=== PATIENT | female | born 1975 | race African-American/Black ===

== ENCOUNTER → 2018-09-02 | Outpatient (CLI) | payer OTHER ==
[~2018-09-02] MED LIST: CETI10TA22 PO; MONT10TA49 PO; NORG1TAB6 PO; SPIR25TA5 PO
--- NOTE | 2018-09-02 23:55 | PAIN ---
DATE OF SERVICE: 09/02/2018 INITIAL CONSULTATION FOR PAIN CLINIC CHIEF COMPLAINT: Neck and the left greater than right upper extremity pain. HISTORY OF PRESENT ILLNESS: This is a 42-year-old female with history of pain in neck base of the shoulders, worse on the left than the right radiating for about 4 years or so on and off, but much worse over the past few months. The patient reports it is increasing with activity, using her upper extremities, driving a car with left arm steering, any repetitive motions of her raising above her head with her left hand reaching items, even putting on clothing with her left arm, going through the sleeve of her jacket per se. The patient reports it wakes her from sleep about once or twice at night. Also has some low back pain, which can keep her awake as well with some radiation to posterior gluteus and thighs, but mainly the chief complaint is base of the neck, left greater than right upper extremity. The patient reports it does not affect her bowel or bladder control, does not affect her ability to walk. Again, waking her from sleep, she has tried Flexeril which has not significantly helped, but does make her sleepy. She is using it as a sleep aid more than anything at this point. She has had previous trigger point injections, dry needling, physical therapy currently, chiropractic currently, and exercises daily. The patient reports nothing has really given her much long-term relief thus far. The patient reports no loss of motor function, but significant fatigability to left and she has been dropping some items occasionally when she has had a longer day at work or has been using her left arm repetitively. The patient rates her disability rate from 0-10, 10 being the worst, a 4 with family home responsibilities and recreation, 6 with social activity, 3 with occupation and sexual behavior, 1 with self-care and life support activities. The patient did have MRI scan both of cervical and lumbar spine showing cervical spine with left posterior disk bulge at C4-C5 abutting the left ventral cord with minimal disk degeneration at C4-C5 as well as left posterior disk bulge, minimal spinal canal narrowing, lumbar spine shows L5-S1 disk degeneration which is minimal as well with left posterior disk bulging minimal also without significant stenosis. The patient reports no loss of motor function, but significant fatigability to left arm compared to the right and tingling and numbness in all the fingers on the left hand, although the patient reports she has some carpal tunnel, which confuses this as well. PAST MEDICAL HISTORY: Significant for borderline diabetes not treated with medications or diet at this time and history of arthritis. PREVIOUS SURGERY: Include bilateral knee surgery, arthroscopic 2007 and 2012; also tubal ligation in 2008 and again in 2010. CURRENT MEDICATIONS: Sprintec oral contraceptive, montelukast, spironolactone, and Zyrtec. ALLERGIES: THE PATIENT IS ALLERGIC TO PERCOCET, HYDROCODONE, WHICH CAUSES HER TO ITCH. SOCIAL HISTORY: The patient does not smoke cigarettes, occasional cigar. Drinks alcohol only socially, maybe once or twice a month at the most. Does not use any illegal, illicit, or recreational drugs. He is single, has one child, living at home and lives in [place] locally. 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 Mostly in a sit down desk type position by her report. REVIEW OF SYSTEMS: Positive for those items mentioned in history of present illness. All systems reviewed and otherwise negative. It is complete, full and well documented on the patient's chart. PHYSICAL EXAMINATION: VITAL SIGNS: His blood pressure 137/80, respirations 18, pulse 81, temperature 98.2 degrees Fahrenheit, height is 5 feet 1 inch, weight is 171 pounds. GENERAL: The patient is awake, alert, oriented, appropriate, very pleasant demeanor. HEENT: Head normocephalic, atraumatic. Extraocular movements are intact and symmetrical. Oral cavity: Mucous membranes moist and pink. Dentition is intact. NECK: Shows anterior throat supple without palpable lymphadenopathy noted. Swallow reflex symmetrical. Posterior cervical musculature shows symmetrical on inspection in both right and left without atrophy or hypertrophy, with palpation shows some mild tenderness in the inferior aspect of the cervical paraspinous musculature more on the left than the right, but again symmetrical, no evidence of atrophy, hypertrophy, no trigger points, no radiation of pain. There is some moderate tenderness in the superior medial and lateral trapezius on the left side compared to the right, which is supple. The patient shows no radiation with this. The patient has good rotational motion of cervical spine, both laterally greater than 45 degrees closer to 90 degrees as well as full rearward extension, full forward flexion without significant pain or discomfort noted. CHEST: Shows normal on inspection. Breath sounds clear to auscultation bilaterally. HEART: Shows S1, S2 clear. No murmurs auscultated. ABDOMEN: Soft, obese, nontender, nondistended. No palpable organomegaly is noted. No rebound or guarding demonstrated. BACK: The patient's back shows spine grossly in the midline. Normal-appearing thoracic kyphosis, lumbar lordotic curvature. Lumbar paraspinous muscle shows symmetrical on inspection, with palpation shows some very mild tenderness more on the left than the right in the inferior aspect of the lumbar paraspinous muscles, but again without asymmetry, without trigger points. No atrophy, hypertrophy, no radiation of pain. The patient has good rotational motion of the lumbar spine, both laterally greater than 10 degrees right and left as well as extension greater than 10 degrees, forward flexion 45 degrees without pain reported. No tenderness over the sacrum and sacroiliac regions over the spinous processes. EXTREMITIES: The patient's extremities show upper extremity deep tendon reflexes 2+ in the biceps and triceps tendons. Motor exam is strong with casework specialist strength rated 5/5 as is bicep and tricep flexion bilaterally. Lower extremities show deep tendon reflexes 1+ patellar and tendo-calcaneus tendons. Motor exam is strong with 5/5 dorsiflexion, extension, quadriceps and hamstring flexion and symmetrical. Peripheral pulses are 1+ posterior tibial and dorsalis pedis pulses and radial distribution is 2+ bilaterally and equal. No peripheral edema is noted in the extremities. SKIN: The patient's skin was warm and dry, good turgor. No edema. No sores, rashes, or bruising. IMPRESSION: 1. This is a 42-year-old female with approximately 4-year history of increasing pain in base of the neck, left upper extremity greater than right in a radicular fashion. 2. Low back pain with radicular fashion in the bilateral lower extremities, again left greater than right. MRI scan both cervical and lumbar spines as noted. 3. Borderline diabetes. 4. Arthritis. PLAN: Options were discussed with the patient including conservative medical management, physical therapy, interventional techniques and she is doing physical therapies and also exercises daily. We discussed interventional techniques. We discussed a cervical epidural steroid injection using description as well as anatomical models to describe the procedure. The patient would like to look into this. We will try Medrol Dosepak in the meantime as she need preauthorization with her insurance provider. The patient was given instruction as well as side effects to be aware of with the medication and will follow up in approximately one week to plan on cervical epidural steroid injection at that time. ASIM LOPEZ MD DR: SIA/marina JOB#: [id number] / [id number]
== END ==
LOC: PNCL 13:33
PROVIDERS: ATTEND Anesthesiology
DX: M50.321 Other cervical disc degeneration at C4-C5 level (principal); M48.02 Spinal stenosis, cervical region; M51.37 Other intervertebral disc degeneration, lumbosacral region; R73.09 Other abnormal glucose; M19.90 Unspecified osteoarthritis, unspecified site; Z88.8 Allergy status to other drugs, medicaments and biological substances
CPT/HCPCS: G0463

== ENCOUNTER → 2018-09-30 | Outpatient (CLI) | payer OTHER ==
[~2018-09-30] MED LIST changes: +IOHEXOL 180 MG/ML 10 ML VIAL. ONE; -MONT10TA49 PO; +MONT10TA9 PO; +methylPREDNISolone ACETATE 40 MG/ML VIAL. ONE; +methylPREDNISolone ACETATE 80 MG/ML VIAL. ONE
--- NOTE | 2018-09-30 22:35 | PAIN ---
DATE OF SERVICE: 09/30/2018 PROGRESS NOTE FOR PAIN CLINIC DIAGNOSES: 1. Cervical radiculopathy with cervical degenerative disk disease. 2. Lumbar radiculopathy with lumbar degenerative disk disease. HISTORY OF PRESENT ILLNESS: This is a 42-year-old female who returns for followup status post initial evaluation and preauthorization for cervical epidural steroid injection. The patient has obtained and would like to proceed today. The patient reports still significant pain in the base of the neck and left upper extremity as it was previously in the shoulder and arm radiating to the hand with some numbness and tingling as well as some on the right side. The patient reports it is a 6 on a scale 10 at its worst, 3 on average, and a 2 at least. Reports aching, dull, tight, shooting, becoming more constant. We did try Medrol Dosepak, which she reports helped for a few days while she was taking it, but after about 3 days following the completion of the Medrol Dosepak, the pain returned except into its baseline. The patient reports it is better with lying down or resting. Her arm does not awaken her from sleep at night. No new motor or sensory deficits or other complaints. PHYSICAL EXAMINATION: VITAL SIGNS: The patient's blood pressure is 124/98, pulse is 78, respirations are 18, temperature is 98.3 degrees Fahrenheit, height is 5 feet 2 inches, weight 167 pounds. GENERAL: She is awake, alert, oriented, appropriate, very pleasant demeanor. HEENT: Head shows normocephalic, atraumatic. Extraocular movements are intact and symmetrical. Oral cavity: Mucous membranes moist and pink. Dentition is intact. NECK: Shows anterior throat supple without palpable lymphadenopathy noted. CHEST: Shows normal on inspection. Breath sounds clear to auscultation bilaterally. HEART: Shows S1, S2 clear. No murmurs auscultated. ABDOMEN: Soft, nontender, nondistended. No palpable organomegaly is noted. No rebound or guarding demonstrated. BACK: The patient's neck shows normal cervical lordotic curvature, thoracic kyphotic curvature and lumbar lordotic curvature. Cervical paraspinous muscle shows symmetrical on inspection, on palpation shows some moderate tenderness in the inferior aspect of the cervical paraspinous muscles, more on the right than the left, but without asymmetry or trigger points, no difficulty with rotation of the cervical spine, both laterally as well as extension and flexion without significant pain reported. EXTREMITIES: The patient's upper extremities show deep tendon reflexes 2+ in the biceps and triceps tendons. 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 Peripheral pulses are 2+ radial distribution. No peripheral edema is noted bilaterally. Options were discussed with the patient. The patient's old chart was reviewed as her current medication regimen updated. Current review of systems is updated today as well and we will proceed with a cervical epidural steroid injection today with fluoroscopic guidance. Risks were again discussed including, but not limited to bleeding, infection, possibility of epidural hematoma, subsequent neurologic compromise, dural puncture, headaches, spinal cord and/or nerve damage, side effects of steroid medication and poor results regarding pain control. The patient understands and wished to proceed. The patient to return to clinic in approximately 2 weeks for follow up, was counseled on return appointment, activity level and side effects to be aware. DIAGNOSES: Cervical radiculopathy with cervical degenerative disk disease. PROCEDURE: Cervical epidural steroid injection in translaminar approach at C6-C7 level using C-arm fluoroscopic guidance under sterile prep and drape using local anesthetic. MEDICATION INJECTED: A total of 120 mg Depo-Medrol plus 5 mL of preservative-free normal saline and 2 mL of Isovue for contrast. CONDITION AT DISCHARGE: Stable. The patient tolerated procedure well, had no complications. ASIM LOPEZ MD DR: SIA/marina JOB#: [id number] / [id number]
== END | disposition home or self-care (01) ==
LOC: PNCL 10:23
PROVIDERS: ATTEND Anesthesiology
DX: M50.123 Cervical disc disorder at C6-C7 level with radiculopathy (principal); M51.16 Intervertebral disc disorders with radiculopathy, lumbar region; Z98.890 Other specified postprocedural states; Z88.8 Allergy status to other drugs, medicaments and biological substances
CPT/HCPCS: 62321; J1030; J1040; Q9965

== ENCOUNTER → 2018-12-04 | Outpatient (CLI) | payer OTHER ==
--- NOTE | 2018-12-04 14:15 | PAIN ---
DATE OF SERVICE: 12/04/2018 PROGRESS NOTE FOR PAIN CLINIC DIAGNOSES: 1. Cervical radiculopathy with cervical degenerative disk disease. 2. Lumbar radiculopathy with lumbar degenerative disk disease. HISTORY OF PRESENT ILLNESS: The patient is a 43-year-old female who returns for followup status post cervical epidural steroid injection x 1 that was on 09/30/2018. The patient did very well, reports about 90% improvement until the last week or so. The patient reports the pain is returning at the base of the neck, left shoulder, left upper extremity, radiating with some tightness intermittently in the base of the shoulder and neck. The patient reports it is aching pain, is constant, becoming more radiating to the left arm and hand with some numbness and tingling, but no loss of motor function. The patient rates her pain as a 6 on a scale 10 over the last week at its worse, 4 on average, 3 at its least and is a 3 today. The patient reports she was increasing her activity with work activities, household activities, mobility, feels like her low back was feeling better as well and she feels that it "loosened." The patient reports no new motor or sensory deficits, no new bowel or bladder incontinence or other complaints. PHYSICAL EXAMINATION: VITAL SIGNS: The patient's blood pressure 130/64, pulse 54, respirations 16, temperature 98.3 degrees Fahrenheit, height is 5 feet 1 inch, weight is 172 pounds. GENERAL: The patient is awake, alert, oriented, appropriate, very pleasant demeanor. HEENT: Head is normocephalic, atraumatic. Extraocular muscles are intact and symmetrical. Oral cavity: Mucous membranes moist and pink. Dentition intact. NECK: Shows anterior throat supple without palpable lymphadenopathy noted. Swallow reflex symmetrical. CHEST: Shows normal on inspection. Breath sounds clear to auscultation bilaterally. HEART: Shows S1, S2 clear. No murmurs auscultated. ABDOMEN: Soft, nontender, nondistended. No palpable organomegaly is noted. No rebound or guarding demonstrated. BACK: Shows spine grossly in the midline, normal-appearing cervical lordotic curvature, thoracic kyphotic curvature and lumbar lordotic curvature. Cervical paraspinous muscle shows symmetrical on inspection. With palpation shows some moderate tenderness diffusely in the base of the cervical paraspinous muscles bilaterally, slightly more tender on the left trapezius in the right, but without asymmetry, without atrophy, hypertrophy or trigger points. The patient has good rotational motion of cervical spine, both laterally as well as extension and flexion without difficulty. EXTREMITIES: Upper extremities show deep tendon reflexes 2+ in the biceps, triceps tendons. Motor exam is strong with 5/5 clerk carrier strength, bicep and tricep flexion. Peripheral pulses are 2+ radial distribution. No peripheral edema is noted bilaterally. PLAN: Options were discussed with the patient. The patient's old chart was reviewed as her current medication regimen updated. Current review of systems updated today as well. We will proceed with a second in a series of cervical epidural steroid injection today with fluoroscopic guidance. Risks were again discussed including, but not limited to bleeding, infection, possibility of epidural hematoma, subsequent neurological compromise, dural puncture, headaches, spinal cord and/or nerve damage, side effects of steroid medication and poor results regarding pain control. The patient understands and wished to proceed. The patient will return to clinic in approximately 2 weeks for followup, was counseled on return appointment, activity level and side effects to be aware of. DIAGNOSIS: Cervical radiculopathy with cervical degenerative disk disease. PROCEDURE: Cervical epidural steroid injection, translaminar approach at C6-C7 level using C-arm fluoroscopic guidance under sterile prep and drape using local anesthetic. MEDICATION INJECTED: A total of 120 mg of Depo-Medrol plus 5 mL of preservative-free normal saline and 2 mL of Isovue for contrast. CONDITION AT DISCHARGE: Stable. The patient tolerated the procedure well, had no complications. ASIM LOPEZ MD DR: SIA/marina JOB#: [id number] / [id number]
== END ==
LOC: PNCL 09:08
PROVIDERS: ATTEND Anesthesiology
DX: M50.123 Cervical disc disorder at C6-C7 level with radiculopathy (principal); M51.16 Intervertebral disc disorders with radiculopathy, lumbar region
CPT/HCPCS: 62321; J1030; J1040; Q9965

== ENCOUNTER → 2019-01-01 | Outpatient (CLI) | payer OTHER ==
[~2019-01-01] MED LIST changes: +MONT10TA49 PO; -MONT10TA9 PO
--- NOTE | 2019-01-01 10:01 | PAIN ---
DATE OF SERVICE: 01/01/2019 DIAGNOSIS: Cervical radiculopathy with cervical degenerative disk disease. HISTORY OF PRESENT ILLNESS: The patient is a 43-year-old female who returns for followup status post cervical epidural steroid injections x 2. The patient reports about 90% improvement for the first 2 months and the pain is returning now. We had her preauthorized for a third injection today and she would like to proceed with that. Pain in the base of the neck and shoulders, worse on the left than the right with spasms in the upper back and mid back as well as some low back pain. The patient reports she has been under a lot of stress lately with her job and with home and has increased pain and tension, mostly in the left arm, radiates to the left posterior deltoid and posterior triceps. The patient reports her pain is 4 on a scale of 10 at its worst, 4 on average, 3 at its least over the past week and is 3 today. The patient reports it is aching and tight, becoming more constant and noticeable with activity. The patient reports it awakens her from sleep at night at least once or twice, she continues to reposition and get back to sleep. Initially, she was doing better with distance walking, doing work activities, increased activity with upper extremity, but now the pain is returning to a fairly significant level. The patient reports no new motor or sensory deficits, no new bowel or bladder incontinence or other complaints. PHYSICAL EXAMINATION: VITAL SIGNS: The patient's blood pressure is 119/75, pulse 81, respirations 16, temperature 99.4 degrees Fahrenheit, height is 5 feet 1 inch, weight is 179 pounds. GENERAL: The patient is awake, alert, oriented, appropriate, very pleasant demeanor. HEENT: Head shows normocephalic, atraumatic. Extraocular movements are intact and symmetrical. Oral cavity: Mucous membranes moist and pink. Dentition is intact. NECK: Shows anterior throat supple without palpable lymphadenopathy noted. Swallow reflex symmetrical. CHEST: Shows normal with inspection. Breath sounds clear to auscultation bilaterally. HEART: Shows S1, S2 clear. No murmurs auscultated. ABDOMEN: Soft, nontender, nondistended. No palpable organomegaly is noted. No rebound or guarding demonstrated. BACK: Shows spine grossly in the midline. Normal-appearing thoracic kyphosis, cervical lordotic curvature and lumbar lordotic curvature. Cervical paraspinous muscle shows symmetrical on inspection; on palpation shows some moderate tenderness diffusely bilaterally, but only diffusely without significant radiation. The patient has good rotational motion of cervical spine, both laterally greater than 45 degrees, closer to 90 degrees as well as full extension, full forward flexion without significant limitation or pain reported. EXTREMITIES: The patient's upper extremities show deep tendon reflexes 2+ in the biceps and triceps tendons. 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 Peripheral pulses are 2+ radial distribution. No peripheral edema is noted. Options were discussed with the patient. The patient's old chart was reviewed as was his current medication regimen updated. Current review of systems updated today as well. We will proceed with a third in the series of cervical epidural steroid injection today with fluoroscopic guidance. Risks were again discussed including, but not limited to bleeding, infection, possibility of epidural hematoma, subsequent neurologic compromise, dural puncture, headaches, spinal cord and/or nerve damage, side effects of steroid medication and poor results regarding pain control. The patient understands and wished to proceed. The patient will return to clinic in approximately 2 weeks for followup. She was counseled as to return appointment, activity level and side effects to be aware of. DIAGNOSIS: Cervical radiculopathy with cervical degenerative disk disease. PROCEDURE: Cervical epidural steroid injection, translaminar approach C6-C7 level using C-arm fluoroscopic guidance under sterile prep and drape using local anesthetic. MEDICATION INJECTED: A total of 120 mg Depo-Medrol plus 5 mL of preservative-free normal saline and 2 mL of contrast. CONDITION AT DISCHARGE: Stable. The patient tolerated the procedure well, had no complications. ASIM LOPEZ MD DR: SIA/marina JOB#: [id number] / [id number]
== END ==
LOC: PNCL 08:39
PROVIDERS: ATTEND Anesthesiology
DX: M50.123 Cervical disc disorder at C6-C7 level with radiculopathy (principal); M54.5 Low back pain; M25.512 Pain in left shoulder; M25.511 Pain in right shoulder
CPT/HCPCS: 62321; J1030; J1040; Q9965